=== PATIENT | male | born 1945 | race Caucasian/White ===

== ENCOUNTER 2022-06-26 09:39 | Outpatient (RCR) | payer MEDICARE, OTHER ==
[~2022-06-26 09:39] MED LIST: LEUPROLIDE 22.5 MG SYRINGE (ELIGARD) SQ SCH
== END 2022-07-11 | disposition still patient (30) ==
LOC: ONC 09:39
PROVIDERS: ATTEND Internal Medicine Hematology & Oncology
DX: C61 Malignant neoplasm of prostate (principal); I10 Essential (primary) hypertension; E11.9 Type 2 diabetes mellitus without complications
CPT/HCPCS: 96402; 99205

== ENCOUNTER 2022-08-19 10:26 | Outpatient (RCR) | payer MEDICARE, OTHER ==
[2022-08-19 10:55] LABS: BASOPHILS % (AUTO) 0 % (0-10); EOSINOPHILS # (AUTO) 0.1 10^3/uL (0.0-0.3); EOSINOPHILS % (AUTO) 1 % (0-10); HEMATOCRIT 45 % (40-54); HEMOGLOBIN 14.9 g/dL (13.3-17.7); LYMPHOCYTES # (AUTO) 1.5 10^3/uL (1.0-4.0); LYMPHOCYTES % (AUTO) 16 % (12-44); MEAN CORPUSCULAR HEMOGLOBIN 30 pg (25-34); MEAN CORPUSCULAR HGB CONC 33 g/dL (32-36); MEAN CORPUSCULAR VOLUME 90 fL (80-99); MEAN PLATELET VOLUME 9.3 fL (9.0-12.2); MONOCYTES # (AUTO) 0.4 10^3/uL (0.0-1.0); MONOCYTES % (AUTO) 4 % (0-12); NEUTROPHILS # (AUTO) 7.5 10^3/uL (1.8-7.8); NEUTROPHILS % (AUTO) 79 % (42-75); PLATELET COUNT 238 10^3/uL (130-400); WHITE BLOOD COUNT 9.6 10^3/uL (4.3-11.0)
[2022-08-19 11:21] LABS: ALBUMIN 4.1 GM/DL (3.2-4.5); BILIRUBIN,TOTAL 0.3 MG/DL (0.1-1.0); CREATININE SERUM 1.46 MG/DL (0.60-1.30); TOTAL PROTEIN 6.8 GM/DL (6.4-8.2)
== END 2022-09-10 | disposition home or self-care (01) ==
LOC: ONC 10:26
PROVIDERS: ATTEND Internal Medicine Hematology & Oncology
DX: C61 Malignant neoplasm of prostate (principal); I10 Essential (primary) hypertension; E11.9 Type 2 diabetes mellitus without complications
CPT/HCPCS: 36415; 80053; 84153; 85025

== ENCOUNTER 2022-09-17 05:42 | Outpatient (CLI) | payer MEDICARE, OTHER ==
[~2022-09-17] VITALS: Ht 175.3 cm; Wt 89.5 kg
[2022-09-17] MEDS ORDERED: LISI40TA9 PO (15:01)
[2022-09-17] MEDS ORDERED: AMLO-251 PO (15:01)
[2022-09-17] MEDS ORDERED: OMEG100032 PO (15:01)
[2022-09-17] MEDS ORDERED: VITA200T7 PO (15:01)
[2022-09-17] MEDS ORDERED: CYAN25003 PO (15:01)
[2022-09-17] MEDS ORDERED: MULT-228 PO (15:01)
[2022-09-17] MEDS ORDERED: EZET10TA49 PO (15:01)
[2022-09-17] MEDS ORDERED: ASPI-999 PO (15:01)
[2022-09-17] MEDS ORDERED: NIAC500C8 PO (15:01)
[2022-09-17] MEDS ORDERED: GLIP10TA24 PO (15:01)
== END 2022-09-17 15:21 | disposition home or self-care (01) ==
LOC: PREOP 05:42
PROVIDERS: ATTEND Radiology Radiation Oncology
DX: Z01.818 Encounter for other preprocedural examination (principal)

== ENCOUNTER 2022-09-24 06:23 | Day surgery (SDC) | payer MEDICARE, OTHER ==
[~2022-09-24] VITALS: Ht 175 cm; Wt 89.5 kg
[2022-09-24] VITALS (8 sets, daily range): BP systolic 103–130; BP diastolic 54–75
[~2022-09-24 06:23] MED LIST changes: +AMLO-251 PO; +ASPI-999 PO; +CYAN25003 PO; +EZET10TA49 PO; +GLIP10TA24 PO; -LEUPROLIDE 22.5 MG SYRINGE (ELIGARD) SQ SCH; +LISI40TA9 PO; +MULT-228 PO; +NIAC500C8 PO; +OMEG100032 PO; +VITA200T7 PO
--- NOTE | 2022-09-24 06:52 | Progress Note-Pre Operative ---
Pre-Operative Progress Note Date of Available H&P: Sep 15, 2022 Date H&P Reviewed: Sep 24, 2022 Time H&P Reviewed: 06:51 History & Physical: H&P Reviewed, Patient Examed, No changes noted Pre-Operative Diagnosis: Prostate cancer cT1c, PSA 20.6, [place] 8 (4+4) CHRISTEN ZULETA MD Sep 24, 2022 06:52
--- NOTE | 2022-09-24 06:54 | Discharge Inst-Simple/Standard ---
Discharge Inst-Standard Reconcile Patient Problems Problems Reviewed?: Yes Discharge Medications New, Converted or Re-Newed RX: Other (Patient has antibiotic and instructions at home.) Patient Instructions/Follow Up Plan of Care/Instructions/FU: Treatment planning ct scan at [facility] cancer center 10/07/22 at 9:00 a.m. Drink 1/2 bottle of oral contrast at 8:30 a.m. prior to appointment. Activity as Tolerated: Yes Discharge Diet: No Restrictions CHRISTEN ZULETA MD Sep 24, 2022 06:54
[2022-09-24] MEDS ORDERED: LACTATED RINGERS 1,000 ML IV PRN (07:00)
[2022-09-24] MEDS ORDERED: proPOfol 200 MG/20 ML (DIPRIVAN) VIAL IV ONE (08:37)
[2022-09-24] MEDS ORDERED: fentaNYL INJ 100 MCG/2 ML AMP ONE (08:37)
[2022-09-24] MEDS ORDERED: ONDANSETRON 4 MG/2 ML (SDV) Z0FRAN ONE (08:37)
[2022-09-24] MEDS ORDERED: LIDOCAINE PF 2% 5 ML (XYLOCAINE) VIAL ONE (08:37)
[2022-09-24] MEDS ORDERED: MIDAZOLAM 2 MG/2 ML (VERSED) VIAL ONE (08:38)
[2022-09-24] MEDS ORDERED: SEVOFLURANE (ULTANE) 15 ML INHAL SOLN ONE (09:13)
[2022-09-24] MEDS ORDERED: ONDANSETRON 4 MG/2 ML (SDV) Z0FRAN IVP PRN (09:30)
[2022-09-24] MEDS ORDERED: morphine INJ 10 MG/ML 1ML (SYR OR VIAL) IVP ONE (09:30)
--- NOTE | 2022-09-24 09:36 | Progress Note-Post Operative ---
Post-Operative Progess Note Surgeon (s)/Ui Application Developer (s) Surgeon CHRISTEN ZULETA MD Ui Application Developer: N/A Pre-Operative Diagnosis Prostate cancer cT1c, PSA 20.6, [place] 8 (4+4) Post-Operative Diagnosis Same as preop Procedure & Operative Findings Date of Procedure 09/24/22 Procedure Performed/Findings (1) Placement of fiducial gold seed markers with ultrasound guidance (2) Injection of biodegradable hydrogel prostate-rectal spacer utilizing the [employer]pect[employer] Whit system Anesthesia Type General Estimated Blood Loss Estimated blood loss (mL): None Specimens/Packing Specimens Removed None Packing: None CHRISTEN ZULETA MD Sep 24, 2022 09:36
--- NOTE | 2022-09-24 11:05 | Anesthesia-General Post-Op ---
General Patient Condition Mental Status/LOC: Same as Preop Cardiovascular: Satisfactory Nausea/Vomiting: Absent Respiratory: Satisfactory Pain: Controlled Complications: Absent Post Op Complications Complications None Follow Up Care/Instructions Patient Instructions None needed. Anesthesia/Patient Condition Patient Condition Patient is doing well, no complaints, stable vital signs, no apparent adverse anesthesia problems. No complications reported per nursing. ELENA DONNELLY CRNA Sep 24, 2022 11:05
== END 2022-09-24 10:40 | disposition home or self-care (01) ==
LOC: SDC 06:23
PROVIDERS: ATTEND Radiology Radiation Oncology
DX: C61 Malignant neoplasm of prostate (principal); Z87.891 Personal history of nicotine dependence; Z28.310 Unvaccinated for COVID-19
CPT/HCPCS: 55874; 55876; 82947; 87081; A4648; C1889

== ENCOUNTER 2022-10-07 09:03 | Outpatient (RCR) | payer MEDICARE, OTHER ==
[~2022-10-07 09:03] MED LIST changes: +LEUPROLIDE 22.5 MG SYRIN(ELIGARD) SQ SCH
== END 2022-10-10 | disposition home or self-care (01) ==
LOC: ONC 09:03
PROVIDERS: ATTEND Internal Medicine Hematology & Oncology
DX: C61 Malignant neoplasm of prostate (principal); I10 Essential (primary) hypertension; E11.9 Type 2 diabetes mellitus without complications
CPT/HCPCS: 77300; 77301; 77334; 77338; 96402

== ENCOUNTER → 2022-11-10 | Outpatient (RCR) | payer MEDICARE, OTHER ==
[~2022-11-10] MED LIST changes: -LEUPROLIDE 22.5 MG SYRIN(ELIGARD) SQ SCH
== END | disposition home or self-care (01) ==
LOC: ONC 10-15 14:09
PROVIDERS: ATTEND Internal Medicine Hematology & Oncology
DX: Z51.0 Encounter for antineoplastic radiation therapy (principal); C61 Malignant neoplasm of prostate
CPT/HCPCS: 77336; 77385

== ENCOUNTER 2022-11-21 09:48 | Outpatient (RCR) | payer MEDICARE, OTHER ==
[2022-11-11 11:07] LABS: BASOPHILS % (AUTO) 0 % (0-10); EOSINOPHILS # (AUTO) 0.2 10^3/uL (0.0-0.3); EOSINOPHILS % (AUTO) 2 % (0-10); HEMATOCRIT 42 % (40-54); HEMOGLOBIN 13.3 g/dL (13.3-17.7); LYMPHOCYTES # (AUTO) 0.7 10^3/uL (1.0-4.0); LYMPHOCYTES % (AUTO) 11 % (12-44); MEAN CORPUSCULAR HEMOGLOBIN 30 pg (25-34); MEAN CORPUSCULAR HGB CONC 32 g/dL (32-36); MEAN CORPUSCULAR VOLUME 95 fL (80-99); MEAN PLATELET VOLUME 9.1 fL (9.0-12.2); MONOCYTES # (AUTO) 0.5 10^3/uL (0.0-1.0); MONOCYTES % (AUTO) 7 % (0-12); NEUTROPHILS # (AUTO) 5.3 10^3/uL (1.8-7.8); NEUTROPHILS % (AUTO) 79 % (42-75); PLATELET COUNT 170 10^3/uL (130-400); WHITE BLOOD COUNT 6.7 10^3/uL (4.3-11.0)
[2022-11-11 11:27] LABS: BILIRUBIN,TOTAL 0.8 MG/DL (0.1-1.0); CALCIUM 9.4 MG/DL (8.5-10.1); CREATININE SERUM 1.42 MG/DL (0.60-1.30); POTASSIUM 3.6 MMOL/L (3.6-5.0); TOTAL PROTEIN 6.4 GM/DL (6.4-8.2)
== END 2022-12-11 | disposition home or self-care (01) ==
LOC: ONC 09:48
PROVIDERS: ATTEND Internal Medicine Hematology & Oncology
DX: Z51.0 Encounter for antineoplastic radiation therapy (principal); C61 Malignant neoplasm of prostate
CPT/HCPCS: 77385; 80053; 84153; 85025; G0463 ×2; 36415; 77336; 99214

== ENCOUNTER 2023-03-10 09:43 | Outpatient (RCR) | payer MEDICARE, OTHER ==
[2023-03-04 10:06] LABS: BASOPHILS % (AUTO) 1 % (0-10); EOSINOPHILS # (AUTO) 0.1 10^3/uL (0.0-0.3); EOSINOPHILS % (AUTO) 3 % (0-10); HEMATOCRIT 41 % (40-54); HEMOGLOBIN 13.4 g/dL (13.3-17.7); LYMPHOCYTES # (AUTO) 1.1 10^3/uL (1.0-4.0); LYMPHOCYTES % (AUTO) 25 % (12-44); MEAN CORPUSCULAR HEMOGLOBIN 31 pg (25-34); MEAN CORPUSCULAR HGB CONC 33 g/dL (32-36); MEAN CORPUSCULAR VOLUME 94 fL (80-99); MEAN PLATELET VOLUME 9.4 fL (9.0-12.2); MONOCYTES # (AUTO) 0.4 10^3/uL (0.0-1.0); MONOCYTES % (AUTO) 9 % (0-12); NEUTROPHILS # (AUTO) 2.6 10^3/uL (1.8-7.8); NEUTROPHILS % (AUTO) 62 % (42-75); PLATELET COUNT 223 10^3/uL (130-400); WHITE BLOOD COUNT 4.3 10^3/uL (4.3-11.0)
[2023-03-04 10:24] LABS: ALBUMIN 3.8 GM/DL (3.2-4.5); BILIRUBIN,TOTAL 0.4 MG/DL (0.1-1.0); CALCIUM 9.3 MG/DL (8.5-10.1); CREATININE SERUM 1.48 MG/DL (0.60-1.30); POTASSIUM 3.5 MMOL/L (3.6-5.0); TOTAL PROTEIN 6.3 GM/DL (6.4-8.2)
[~2023-03-10 09:43] MED LIST changes: +LEUPROLIDE 22.5 MG SYRINGE (ELIGARD) SQ SCH
== END 2023-03-12 | disposition home or self-care (01) ==
LOC: ONC 09:43
PROVIDERS: ATTEND Internal Medicine Hematology & Oncology
DX: C61 Malignant neoplasm of prostate (principal); E11.9 Type 2 diabetes mellitus without complications; I10 Essential (primary) hypertension
CPT/HCPCS: 36415; 80053; 84153; 85025; 96402; 99214